=== PATIENT | female | born 1995 | race African-American/Black ===

== ENCOUNTER 2025-04-13 15:24 | Outpatient (AMB) | payer OTHER, SELFPAY ==
--- NOTE | 2025-04-13 13:51 | A.OFFPC_ITS ---
Vital Signs 04/13/25 15:30 Height 5 ft 4 in Weight 205 lb BMI 35.2 BP 100/74 Blood Pressure Location Lt brachial Position Sitting Respiration 16 Pulse 68 Pulse Source Pulse Oximeter Temp 98.3 F Temp Source Oral Pulse Oximetry (%) 96 Oxygen Delivery Method Room Air Intake Visit Reasons: ED follow up migraines Senior Sql Developer Required: No Accompanied by: Self / Same As Patient Allergies Penicillins Allergy (Intermediate, Verified 04/13/25 15:32) Hives Medication List - Last Reconciled 04/13/25 by Shantel Goodman MD acetaminophen (Tylenol Extra Strength) 500 mg PO Q6H PRN albuterol sulfate 90 mcg/actuation 2 puffs inhalation Q4H PRN cholecalciferol (vitamin D3) 50 mcg PO DAILY fluoride (sodium) 1.1% 1 appl dental BEDTIME fluticasone propionate 50 mcg/actuation 1 spray intranasal DAILY ibuprofen 800 mg PO Q8H PRN metformin 500 mg PO DAILY norethindrone (contraceptive) (Incassia) 0.35 mg PO DAILY Tobacco use date assessed: 04/13/25 Dental Screening Dental Screen Date: 04/13/25 Did you have a dental visit in the last 12 months?: Yes Did you have a dental problem in the last 6 months where you did not have access to dental care?: No Was dental information given to patient?: Patient has dentist HPI HPI Comments History of Present Illness Details The patient is a 29 year old female presenting with migraines and to [facility]. Recent ED visit at [facility] on 04/05, records pending. Migraine: Recent episodes with ocular aura and headache right-sided. Uses OTC medications. Stress-related triggers noted. Went to [facility] ER. Elevated blood pressure readings: Elevated readings during migraines noted. Obesity: Difficulty with weight loss despite good dietary habits. Past use of metformin for weight management. Anxiety: Increased due to a new teaching role. Open to psychotherapeutic support. Possible Sleep Disorder: Unresolved numbness and fatigue post-migraines. 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 Card: normal s1, s2 Abd: SNTND, +BS Extremities: no edema Neuro: AOX3 Assessment and Plan 1. Migraine - Amitriptyline 25 mg at bedtime. - Monitor blood pressure, neurologist co nsult due to episodes of numbness with migraine that have recurred - on OCPS so prescribed amitriptyline in stead of topamax . 2. Elevated blood pressure - Blood pressure monitoring advised. 3. Obesity - Referral to weight management program. 4. Anxiety - Suggest psychotherapy. 5. Possible Sleep Disorder - Sleep study referral issued - could be triggering more episodes of m igraine Follow up in 4 months as scheduled for physical Discussion Notes During the office visit we discussed the management of her recurrent migraines, noting the occurrence of ocular aura and associated symptoms. I recommended initiating amitriptyline, highlighting its benefits for long-term migraine prevention. We talked about potential side effects, such as dry mouth and cognitive changes, and the need to contact me for any concerns. Regarding her blood pressure, she has been advised on regular monitoring, especially when experiencing headaches. We addressed her desire for weight management support, acknowledging her challenges despite dietary improvements and agreed on a weight management program referral. For anxiety influenced by occupational changes, we discussed the potential benefits of psychotherapy, which she was open to considering. Lastly, given her history of numbness and fatigue, a sleep study was recommended to further evaluate possible sleep disturbances that might contribute to her symptoms. Patient Instructions - Take amitriptyline 25 mg at bedtime as prescribed. - Monitor and log blood pressure regular ly. - Follow up with the weight management lynn amezquita when contacted. - Drink adequate water and maintain a ba lanced diet. - Schedule and attend a sleep study for further evaluation of symptoms. - Consider speaking with a therapist to help manage anxiety. - Report any new symptoms or concerns to the office [facility] Medical History (Updated 04/13/25 @ 17:49 by Shantel Goodman MD) Elevated blood pressure reading Sleepiness Routine adult health maintenance Migraines Obesity Family History (Updated 04/13/25 @ 17:47 by Shantel Goodman MD) Mother Hypertension Sleep apnea Chronic kidney disease Other Borderline diabetes Social History Housing: House Patient Tobacco Use Status: Never used Tobacco e-Cigarette/Vaping Use: Never Used service: No Current occupational status: employed Current occupation: [employer]ip [employer] Questionnaire AUDIT C Alcohol Use Questionnaire (AUDIT-C) 1. How often do you have a drink containing alcohol?: Monthly or less 2. How many drinks containing alcohol do you have on a typical day when you are drinking?: 1 or 2 3. How often do you have six or more drinks on one occasion?: Never Total Score: 1 Physical exam (Primary Care) Vital Signs: Last Vital Signs Temp 98.3 F 04/13/25 15:30 Pulse 68 04/13/25 15:30 Resp 16 04/13/25 15:30 BP 100/74 04/13/25 15:30 Pulse Ox 96 04/13/25 15:30 Oxygen Delivery Method Room Air 04/13/25 15:30 BMI result Body Mass Index 35.2 Tobacco/Smoking Status: Tobacco use Status Tobacco use date assessed 04/13/25 04/13/25 13:52 Patient Tobacco Use Status Never used Tobacco 04/13/25 15:38 e-Cigarette/Vaping Use Never Used 04/13/25 15:38 Coding Level of Care Code Est Pt Level 4 (23963) Complex EM visit Add On G2211 Diagnoses Migraine with aura and without status migrainosus, not intractable G43.109 Intractability: not intractable Migraine type: with aura Status migrainosus presence: without status migrainosus Class 2 obesity with body mass index (BMI) of 35.0 to 35.9 in adult, unspecified obesity type, unspecified whether serious comorbidity present E66.9; Z68.35 Body mass index: BMI 35.0-35.9 Obesity classification: adult class 2 (BMI 35 - 39.9) Obesity type: unspecified obesity type Serious obesity comorbidity presence: unspecified whether serious comorbidity present Elevated blood pressure reading R03.0 Assessment & Plan Assessment & Plan (1) Migraines: Code(s): G43.909 - Migraine, unspecified, not intractable, without status migrainosus Category: Medical Qualifiers: Intractability: not intractable Migraine type: with aura Status migrainosus presence: without status migrainosus Qualified Code(s): G43.109 - Migraine with aura, not intractable, without status migrainosus (2) Obesity: Code(s): E66.9 - Obesity, unspecified Category: Medical Qualifiers: Body mass index: BMI 35.0-35.9 Obesity classification: adult class 2 (BMI 35 - 39.9) Obesity type: unspecified obesity type Serious obesity comorb idity presence: unspecified whether serious comorbidity present Qualified Code(s): E66.9 - Obesity, unspecified; Z68.35 - Body mass index [BMI] 35.0-35.9, adult (3) Elevated blood pressure reading: Code(s): R03.0 - Elevated blood-pressure reading, without diagnosis of hypertension Category: Medical Plan - Prescribe amitriptyline 25 mg for migraine. - Neurology consult for complex migraine symptoms. - Encourage blood pressure monitoring. - Medical weight management referral. - Suggest psychotherapy for anxiety. - Sleep study referral recommended. Orders: Orders Lipid Panel Today E66.9 - Obesity, unspecified, G43.909 - Migraine, unspecified, not intractable, without status migrainosus, Z00.00 - Encounter for general adult medical examination without abnormal findings Complete Blood Count Auto Diff Today E66.9 - Obesity, unspecified, G43.909 - Migraine, unspecified, not intractable, without status migrainosus, Z00.00 - Encounter for general adult medical examination without abnormal findings Comprehensive Met. Panel Today E66.9 - Obesity, unspecified, G43.909 - M igraine, unspecified, not intractable, without status migrainosus, Z00.00 - Encounter for general adult medical examination without abnormal findings ABO RH Type Today G43.109 - Migraine with aura, not intractable, without status migrainosus Referrals Medical Weight Management Referral E66.9 - Obesity, unspecified Neurology Referral G43.109 - Migraine with aura, not intractable, without status migrainosus Sleep Medicine Referral G43.109 - Migraine with aura, not intractable, without status migrainosus, R40.0 - Somnolence Medications: New amitriptyline 25 mg PO BEDTIME 90 tabs 1RF Patient Instructions: TAKE AMITRIPTYLINE 25MG AT NIGHT FOR MIGRAINES REFERRAL FOR MEDICAL WEIGHT MANAGEMENT GET [facility] REFERRAL PLACED FOR NEUROLOGY REFERRAL FOR PLACED FOR SLEEP APNEA REFERRAL FOR THERAPIST
[2025-04-13 15:30] VITALS: BP 100/74; PULSE 68; RESP 16; TEMP 36.8; O2SAT 96; BMI 35.2
--- OUTSIDE RECORDS SUMMARY | 2025-04-13 19:45 | XMS_ITS ---
Author Name [facility] Organization Unknown History of Medication Use Medication Directions Dispensed Refills Start Date End Date Stat metronidazole 500 mg tablet Take 1 tablet twice a day by oral route as directed for 7 days. 06/22/2024 4 active fluconazole 150 mg tablet Take 1 tablet twice a week by oral route for 14 days. 01/07/2024 4 active Macrobid 100 mg capsule Take 1 capsule every 12 hours by oral route for 5 days. 10/24/2023 active terconazole 0.4 % vaginal cream Insert 1 applicatorful every day by vaginal route for 7 days. 10/14/2023 4 active nystatin-triamcinolo ne 100,000 unit/gram-0.1 % topical ointment APPLY TO THE AFFECTED AREA BY TOPICAL ROUTE 2 TIMES PER DAY FOR 2 WEEKS 10/08/2023 4 active cholecalciferol (vitamin D3) 50 mcg (2,000 unit) capsule TAKE 1 CAPSULE BY MOUTH EVERY DAY 5 completed metronidazole 0.75 % (37.5 mg/5 gram) vaginal gel 5 completed topiramate 25 mg tablet TAKE 1-2 TABLET BY MOUTH DAILY AT NIGHT FOR MIGRAINES AND APPETITE SUPPRESSION 5 completed doxycycline monohydrate 100 mg capsule 4 completed nitrofurantoin monohydrate/macrocry stals 100 mg capsule 02 4 completed Wegovy 1.7 mg/0.75 mL subcutaneous pen injector 4 active azithromycin 250 mg tablet 4 completed clotrimazole-betamet hasone 1 %-0.05 % topical cream 4 completed Lisandra 30 mg tablet 4 completed Wegovy 0.25 mg/0.5 mL subcutaneous pen injector 4 completed Wegovy 0.5 mg/0.5 mL subcutaneous pen injector 4 completed Wegovy 1 mg/0.5 mL subcutaneous pen injector 4 completed nystatin-triamcino lone 100,000 unit/gram-0.1 % topical ointment active metronidazole 500 mg tablet active fluconazole 150 mg tablet active terconazole 0.4 % vaginal cream active albuterol sulfate HFA 90 mcg/actuation aerosol inhaler active Incassia 0.35 mg tablet Take 1 tablet every day by oral route. active metformin 500 mg tablet TAKE 1 TABLET ORALLY DAILY TAKE AT NIGHT active ondansetron [address] 1 TABLET BY MOUTH TWICE A DAY NEEDED active sodium fluoride 1.1 % dental paste BRUSH FOR 1 MINUTE ONCE DAILY AT BEDTIME, NO EAT, DRINK, OR RINSE FOR 30 MINUTES AFTER active Allergies Allergen Reaction Severity Comment Documented Date Source Statu s MEDICINAL PRODUCT CONTAINING PENICILLIN AND ACTING ANTIBACTERIAL AGENT (PRODUCT) HIVES [facility] active Problems Problem Status Onset Date Problem Type Date of Resoluti on Source Migraine active 2024-01-07 ProblemAct [facility] Body mass index 30+ - obesity active 2024-01-07 ProblemAct [facility] Uses oral contraception active 2024-01-07 ProblemAct [facility] Immunizations Vaccine Date Source Lot Number Status Tdap 07/07/2023 [facility] [id number] completed COVID-19, mRNA, LNP-S, PF, 1 00 mcg/0.5mL dose or 50 mcg/0.25mL dose 06/21/2021 [facility] [id number] completed Influenza, split virus, triv alent, preservative 06/01/2021 [facility] [id number] completed COVID-19, mRNA, LNP-S, PF, 1 00 mcg/0.5mL dose or 50 mcg/0.25mL dose 07/28/2020 [facility] [id number] completed COVID-19, mRNA, LNP-S, PF, 1 00 mcg/0.5mL dose or 50 mcg/0.25mL dose 06/30/2020 [facility] [id number] completed Encounters Encounter Type Encounter Reason Primary Diagnosis Location Date Ambulatory Acute vaginitis Acute vaginitis [facility] 09/13/2024 Ambulatory Acute vaginitis Acute vaginitis [facility] 06/22/2024 Ambulatory Acute vaginitis Acute vaginitis [facility], [facility] 03/11/2024 Ambulatory Dysuria Dysuria [facility], [facility] 01/07/2024 Ambulatory Endometriosis, unspecified Endometriosis, unspecified [facility], [facility] 12/10/2023 Ambulatory Acute vaginitis Acute vaginitis [facility] 10/23/2023 Ambulatory Acute vaginitis Acute vaginitis [facility] 10/23/2023 Ambulatory Abnormal microbiolog findings in specimens from oth org/tiss Abnormal microbiolog findings in specimens from oth org/tiss [facility], [facility] 10/20/2023 Ambulatory Acute vaginitis Acute vaginitis [facility], [facility] 10/14/2023 Ambulatory Right lower quadrant pain Right lower quadrant pain [facility], [facility] 10/08/2023 Ambulatory Acute vaginitis Acute vaginitis [facility], [facility] 09/18/2023 Ambulatory no current diagnosis no current diagnosis [facility], [facility] 08/14/2023 Care Team Organization Name Specialty Phone Email Start Date End Da te [facility], [facility] 08/14/2023 [facility], [facility] 08/14/2023
--- OUTSIDE RECORDS SUMMARY | 2025-04-13 19:45 | XMS_ITS | Encounter Summary ---
Author Organization [facility] Address [address] [place] [address] [place] [id number] Phone Care Team Providers Care Kiln Loader Name Role Phone Shantel Goodman MD Primary Care Provider + Encounter Details Date Type Department Care Team (Late st Contact Info) Description 08/13/2022 Telephone [facility] - [address] [address] Michelle Soriano, [facility] [address] [place] [address] [email or web address] Social History Tobacco Use Types Packs/Day Years Used Date Smoking Tobacco: Never Smokeless Tobacco: Never Alcohol Use Standard Drinks/Week Comments Yes 0 (1 standard drink = 0.6 oz pur e alcohol) socially Comments No Sex and Gender Information Value Date Recorded Sex Assigned at Female 08/23/2019 2:22 PM EDT Legal Sex Female 2:13 PM EDT Gender Identity Female 08/23/2019 2:22 PM EDT Sexual Orientation Straight 08/23/2019 2: 22 PM EDT documented as of this encounter Plan of Treatment Not on file documented as of this encounter Visit Diagnoses Not on filedocumented in this encounter Additional Health Concerns Infection Onset Date Last Indicated Resolved Time CoV-Risk 06/19/2023 06/19/2023 06/30/2023 1:22 AM EST CoV-Risk 07/11/2023 07/11/202307/1107/11/2023 9:37 AM EST COVID-19 07/11/2023 07/11/2023 08/01/2023 1:21 AM EST CoV-Risk 04/05/2025 04/05/2025 documented as of this encounter Care Teams Kiln Loader Relationship Specialty [place] [address] [place] [address] PCP - General Internal Medicine 08/23/19 documented as of this encounter Additional Source Comments The information contained in this document represents components of the legal health record. It is not the complete legal health record.[facility]
--- OUTSIDE RECORDS SUMMARY | 2025-04-13 19:45 | XMS_ITS | Encounter Summary ---
Author Organization [facility] Address [address] [place] [address] [place] [address] Phone Care Team Providers Care Lang Path Therapist Name Role Phone Shantel Goodman MD Primary Care Provider + Encounter Details Date Type Department Care Team ([facility] st Contact Info) Description 04/05/[address] [facility] Ur[facility] Care [address] [address] Jessenia Underwood MD [address] [place] [address] [place] [address] [email or web address] Social History Tobacco Use Types Packs/Day Years Used Date Smoking Tobacco: Never Smokeless Tobacco: Never Comments No Sex and Gender Information Value [...] Onset Date Last Indicated Resolved Time CoV-Risk 07/08/2022 07/08/2022 07/19/2022 1:22 AM EST CoV-Risk 06/19/2023 06/19/2023 06/30/2023 1:22 AM EST CoV-Risk 07/11/2023 07/11/2023 07/11/2023 9:37 AM EST COVID-19 07/11/2023 07/11/2023 08/01/2023 1:21 AM EST CoV-Risk 04/05/2025 04/05/2025 documented as of this encounter Care Teams Lang Path Therapist Relationship Specialty Start Date End Date Shantel Goodman MD [address] [place] [address] PCP - General Internal Medicine 08/23/19 documented as of this encounter Additional Source Comments The information contained in this document represents components of the legal health record. It is not the complete legal health record.[facility]
--- OUTSIDE RECORDS SUMMARY | 2025-04-13 19:45 | XMS_ITS | Encounter Summary ---
Author Organization [facility] Address [address] [place] [address] Phone Care Team Providers Care Benefits Specialist Recruiter Name Role Phone Shantel Goodman MD Primary Care Provider + Encounter Details Date Type Department Care Team (Late st Contact Info) Description 04/05/2025 Procedure [facility], Ct Scan - [facility] [address] [place] [address] Social History Tobacco Use Types Packs/Day Years Used Date Smoking Tobacco: Never Smokeless Tobacco: Never Alcohol Use Standard Drinks/Week Comments Yes 0 (1 standard drink = 0.6 oz pur e alcohol) socially Education Answer Date Recorded Are you interested in more education? Not on maddison e 10/11/2022 Are you concerned about learning? Not on file 10/11/2022 No 10/11/2022 No 10/11/2022 Food Answer Date Recorded Within the past 6 months we worried whether our food would run out before we got money to buy more. Never True 04/05/2025 Within the past 6 months the food we bought just didn't last and we didn't have enough money to get more. Never True Residential Stability Answer Date Recor ded What is your housing situation today? I have yesika sing 04/05/2025 How many times have you move d in the past 12 months? Zero (I did not move) 04/05/2025 Paying for Meds Answer Date Recorded Do you have trouble paying for medicines? No 04/05/2025 Paying Utility Bills Answer Date Record ed Do you have trouble paying your heating or elect ricity bill? No 04/05/2025 Transportation Answer Date Recorded Has the lack of transportati on kept you from medical appointments or from getting medications? No 04/05/2025 Digital Access Answer Date Recorded No 04/05/2025 Yes 04/05/2025 Do you have reliable internet access at home? Ye s 04/05/2025 Do you have a device (e.g., phone, tablet, computer) with a working camera? Yes 04/05/2025 Intimate Partner Violence Answer Date R ecorded Are you denied basic needs s uch as food, clothing, or medical care? No 04/05/2025 In the past 12 months have y ou been in a relationship with a person who hurts, threatens, or tries to control you? No 04/05/2025 Are you denied basic needs s uch as food, clothing, or medical care? No 04/05/2025 In the past 12 months have y ou been in a relationship with a person who hurts, threatens, or tries to control you? No 04/05/2025 Comments No Sex and Gender Information Value Date Recorded Sex Assigned at Female 08/23/2019 2:22 PM EDT Legal Sex Female 2:13 PM EDT Gender Identity Female 08/23/2019 2:22 PM EDT Sexual Orientation Straight 08/23/2019 2: 22 PM EDT documented as of this encounter Functional Status * Calculated C-SSRS Risk Score (Lifetime/Recent) Answer Date of Assessment Author No Risk Indicated 04/05/2025 4:41 PM EDT Kaylee Saxena RN * [place] Suicide Severity Rating Scale (Screener/Recent Self-Report) Question Answer Date of Assessment Author 1. Wish to be (Past 1 Month) No 025 4:41 PM EDT Kaylee Saxena, OTONIEL 2. Non-Specific Active Suici richard Thoughts (Past 1 Month) No 04/05/2025 4:41 PM EDT Kaylee Saxena, RN 6. Suicidal Behavior (Lifetime) No 4:41 PM EDT Kaylee Saxena, RN documented as of this encounter Plan of Treatment Not on file documented as of this encounter Visit Diagnoses Not on filedocumented in this encounter Additional Health Concerns Infection Onset Date Last Indicated Resolved Time CoV-Risk 04/05/2025 04/05/2025 documented as of this encounter Care Teams Benefits Specialist Recruiter Relationship Specialty Start Date End Date Shantel Goodman MD [address] [place] [address] PCP - General Internal Medicine 08/23/19 documented as of this encounter Additional Source Comments The information contained in this document represents components of the legal health record. It is not the complete legal health record.[facility]
--- OUTSIDE RECORDS SUMMARY | 2025-04-13 19:45 | XMS_ITS | Clinical Summary ---
Author Organization [facility] Address [address] [facility] [address] [place] [address] Phone Care Team Providers Care Event Manager Name Role Phone Shantel Goodman MD Primary Care Provider + Allergies Active Allergy Reactions Criticality Noted Date Comments Penicillins 02/21/2020 Medications fluticasone propionate (FLONASE) 50 mcg/actuation nasal spray Active norethindrone (MICRONOR) 0.35 mg tablet Take 1 tablet (0.35 mg total) by mouth daily. 90 tablet 4 3 Active WEGOVY 0.25 mg/0.5 mL subcutaneous pen injection 3 Active pseudoephedrine (SUDAFED) 60 MG tabletIndication s:Acute cough Take 1 tablet (60 mg total) by mouth every 6 (six) hours as needed for congestion. 30 tablet 4 Active Additional Information Patient not taking.Reported on 10/03/2023 albuterol (PROAIR HFA) 90 mcg/actuation inhalerIndicatio ns:Acute cough Inhale 1 puff into the lungs every 4 (four) hours as needed for wheezing or shortness of breath/dyspnea (cough). 8 g 4 Active medroxyPROGESTER one (DEPO-PROVERA) 150 mg/mL injection 3 Active Active Problems Problem Noted Date Diagnosed Date Amenorrhea 10/25/2022 10/25/2022 Back pain 10/25/2022 10/25/2022 Hyperprolactinemia 10/25/2022 10/25/2022 Cough 10/25/2022 10/25/2022 Shortness of breath 10/25/2022 10/25/2022 Chronic headaches 09/26/2022 Migraines 09/26/2022 Class 1 obesity 06/21/2022 Encounters Date Type Department Care Team Description 04/05/2025 6:15 PM EDT - 04/05/2025 10:58 PM EDT Emergency [facility] [address] [place] [address] Talita Tristan MD Discharge Disposition: Home or Self Care 04/05/2025 Procedure Pass [facility], Ct Scan - [facility] [address] [place] [address] from Last 3 Months Immunizations Immunization Administration Dates Next Due COVID-19 (Pre-04/07) Moderna Vaccine, mRNA, PF 07/28/2020,06/30/2020 INFLUENZA, SPLIT VIRUS, TRIV ALENT W/ PRESERVATIVE IM 06/01/2021,05/25/2020,05/26/2019 Social History Tobacco Use Types Packs/Day Years [...] Orientation Straight 08/23/2019 2: 22 PM EDT Last Filed Vital Signs Vital Sign Reading Time Taken Comments Blood Pressure 112/72 04/05/2025 9:51 PM EDT Pulse 71 04/05/2025 9:51 PM EDT Temperature 36.2 C (97.2 F) 04/05/2025 9:51 PM EDT Respiratory Rate 18 04/05/2025 9:51 PM EDT Oxygen Saturation 98% 04/05/2025 9:51 PM EDT Inhaled Oxygen Concentration - - Weight 88.9 kg (196 lb) 04/05/2025 4:41 PM EDT Height 160 cm (5' 3 ) 04/05/2025 4:41 PM EDT Body Mass Index 34.72 04/05/2025 4:41 PM EDT Plan of Treatment Health Maintenance Due Date Last Done Comments HEPATITIS C SCREENING 11/08/2011 HIV ONE-TIME SCREENING (18-6 5 YEARS) 11/08/2011 PAP SMEAR 2014 DEPRESSION SCREENING 12/10/2023 12/09/2022 INFLUENZA VACCINE (#1) 2025 , 05/25/2020, 05/26/2019 COVID-19 VACCINE ( - 2024-2 6 season) 2025 06/21/2021, 07/28/2020, 06/30/2020 Adult Td,Tdap Booster 07/07/2033 07/07/2023 SMOKING STATUS SCREENING (On ce After 26 Yrs) Completed 10/03/2023 HEPATITIS A VACCINES Aged Out No long er eligible based on patient's age to complete this topic HIB VACCINES Aged Out No longer eligi ble based on patient's age to complete this topic MENINGOCOCCAL VACCINES (ACWY) Aged Out No longer eligible based on patient's age to complete this topic MENINGOCOCCAL VACCINES (B) Aged Out N o longer eligible based on patient's age to complete this topic PNEUMOCOCCAL VACCINES (0-49 years) Aged Out No longer eligible b ased on patient's age to complete this topic Medical Devices Not on file Procedures Procedure Name Priority Date/Time Associated Diagnosis Comments CT HEAD WITHOUT CONTRAST Routine 04/05/2025 8:17 PM EDT COVID PANDEMIC RESPIRATORY VIRAL ORDER (PRO) STAT 04/05/2025 4:42 PM EDT from Last 3 Months Results * CT HEAD WITHOUT CONTRAST (04/05/2025 8:17 PM EDT) Anatomical Region Laterality Modality Head Computed Tomogra phy 04/05/2025 10:2 4 PM EDT Impressions 04/05/2025 10:30 PM EDT No acute intracranial hemorrhage, midline shift, or mass effect. Narrative 04/05/2025 10:[address] HEAD WITHOUT CONTRAST Referring clinician's provided indication for this examination in Epic: * Headache, chronic, new features or increased frequency TECHNIQUE: Multidetector-row CT of the head was performed without intravenous contrast using tailored dose modulation techniques. Images were reconstructed in the axial, coronal, and sagittal planes. Comparison: None FINDINGS: Brain Parenchyma: No acute intraparenchymal hemorrhage, midline shift, or mass effect. Ventricular System and Extra-Axial Spaces: No extra-axial fluid collections. Basal cisterns are patent. No hydrocephalus. Calcified intracranial vascular disease. Osseous and Extracranial Structures: No acute calvarial fracture. The mastoid air cells are well-aerated. Minimal to mild scattered paranasal sinus mucosal thickening. The bilateral globes are intact. The soft tissues are unremarkable. Procedure Note Tahir Freedman MD - 04/05/2025 CT HEAD WITHOUT CONTRAST Referring clinician's provided indication for this examination in Epic: *Headache, chronic, new features or increased frequency TECHNIQUE: Multidetector-row CT of the head was performed withoutintravenous contrast using tailored dose modulation techniques. Imageswere reconstructed in the axial, coronal, and sagittal planes. Comparison: None FINDINGS: Brain Parenchyma: No acute intraparenchymal hemorrhage, midline shift, ormass effect. Ventricular System and Extra-Axial Spaces: No extra-axial fluidcollections. Basal cisterns are patent. No hydrocephalus. Calcifiedintracranial vascular disease. Osseous and Extracranial Structures: No acute calvarial fracture. Themastoid air cells are well-aerated. Minimal to mild scattered paranasalsinus mucosal thickening. The bilateral globes are intact. The softtissues are unremarkable. IMPRESSION: No acute intracranial hemorrhage, midline shift, or mass effect. Talita Tristan MD IM CT HEAD/NECK Final Resul t * COVID Pandemic Respiratory Viral Order (PRO) (04/05/2025 4:42 PM EDT) Test Ordered COVID, Flu has been ordered [facility] Specimen Source/Descriptio n NASOPHARYNGEAL SWAB [facility] Influenza A PCR Not Detected Not Detected [facility] Influenza B PCR Not Detected Not Detected [facility] SARS-CoV 2 (COVID-19) PCR Not Detected Not Detected [facility] Comment: SARS-CoV-2 not detected Negative results do not preclude SARS-CoV-2 infection and should not be used as the sole basis for patient management decisions. Negative results must be combined with clinical observations, patient history, and epidemiological information. Other (Nasopharyngeal swab) 04/05/2025 4:42 PM EDT 04/05/2025 4:46 PM EDT us George Gonzalez MD BODY FLUIDS AND STOOLS ORDERABL ES Final Result [address] [address] from Last 3 Months Additional Health Concerns Infection Onset Date Last Indicated CoV-Risk 04/05/2025 04/05/2025 [place] [facility] [place] [facility] [place] [facility] [place] [phone] [facility] [place] [facility] Care Teams Event Manager Relationship Specialty Start Date End Date Shantel Goodman MD [facility] [place] [address] PCP - General Internal Medicine 08/23/19 Additional Source Comments The information contained in this document represents components of the legal health record. It is not the complete legal health record.[facility]
== END 2025-04-13 16:19 | disposition home or self-care (01) ==
LOC: HO.HMCHD 15:25
PROVIDERS: PCP Internal Medicine; Visit Provider Internal Medicine
DX: G43.109 Migraine with aura, not intractable, without status migrainosus (principal); E66.9 Obesity, unspecified; Z68.35 Body mass index [BMI] 35.0-35.9, adult; R03.0 Elevated blood-pressure reading, without diagnosis of hypertension

== ENCOUNTER → 2025-04-13 15:24 | Outpatient (BNVA) | payer OTHER, SELFPAY | PROVIDERS: PCP Internal Medicine; Visit Provider Internal Medicine | DX: G43.109 Migraine with aura, not intractable, without status migrainosus (principal); R03.0 Elevated blood-pressure reading, without diagnosis of hypertension; E66.812 Obesity, class 2; Z68.35 Body mass index [BMI] 35.0-35.9, adult; F41.9 Anxiety disorder, unspecified; R40.0 Somnolence | CPT/HCPCS: 99212 ==

== ENCOUNTER 2025-04-14 07:28 | Outpatient (REF) | payer OTHER, SELFPAY ==
--- OUTSIDE RECORDS SUMMARY | 2025-04-14 07:34 | XMS_ITS | Encounter Summary ---
Author Organization [facility] Address [address] [facility] [address] [place] [address] Phone Care Team Providers Care Hourly Manager Name Role Phone Shantel Goodman MD Primary Care Provider + Encounter Details Date Type Department Care Team (Late st Contact Info) Description 04/05/2025 Procedure Pass [facility], Ct Scan - [facility] [address] [place] [address] Social History Tobacco Use Types Packs/Day Years [...] 4:41 PM EDT Kaylee Saxena RN * [place] Suicide Severity Rating Scale (Screener/Recent Self-Report) Question [...] documented as of this encounter Care Teams Hourly Manager Relationship Specialty Start Date End Date Shantel Goodman MD [address] [place] [address] PCP - General Internal Medicine 08/23/19 documented as of this encounter Additional Source Comments The information contained in this document represents components of the legal health record. It is not the complete legal health record.[facility]
--- OUTSIDE RECORDS SUMMARY | 2025-04-14 07:34 | XMS_ITS | Encounter Summary ---
Author Organization [facility] Address [address] [place] [address] [place] [phone] Phone Care Team Providers Care Air Brake Adjuster Name Role Phone Shantel Goodman MD Primary Care Provider + Encounter Details Date Type Department Care Team ([facility] st Contact Info) Description 04/05/2021 Telephone [facility] Urgent Care [address] [address] Jessenia Underwood MD [address] [place] [address] [place] [address] [email or web address] Social History Tobacco Use Types Packs/Day Years [...] documented as of this encounter Care Teams Air Brake Adjuster Relationship Specialty Start Date End Date Shantel Goodman MD [address] [place] [address] PCP - General Internal Medicine 08/23/19 documented as of this encounter Additional Source Comments The information contained in this document represents components of the legal health record. It is not the complete legal health record.[facility]
--- OUTSIDE RECORDS SUMMARY | 2025-04-14 07:34 | XMS_ITS | Clinical Summary ---
Author Organization [facility] Address [address] [facility] [address] [place] [address] Phone Care Team Providers Care Manager Council Name Role Phone Shantel Goodman MD Primary [...] 10:58 PM EDT Emergency [facility] [address] [place] [address] Talita Tristan MD Discharge Disposition: Home or Self Care 04/05/2025 Procedure Pass [facility], Ct Scan - [facility] [address] [place] [address] from Last 3 Months Immunizations Immunization Administration [...] Test Ordered COVID, Flu has been ordered [facility] Specimen Source/Descriptio n NASOPHARYNGEAL SWAB [facility] Influenza A PCR Not Detected Not Detected [facility] Influenza B PCR Not Detected Not Detected [facility] SARS-CoV 2 (COVID-19) PCR Not Detected Not Detected [facility] Comment: SARS-CoV-2 not detected Negative results do not preclude SARS-CoV-2 infection and should not be used as the sole basis for patient management decisions. Negative results must be combined with clinical observations, patient history, and epidemiological information. Other (Nasopharyngeal swab) 04/05/2025 4:42 PM EDT 04/05/2025 4:46 PM EDT us George Gonzalez MD BODY FLUIDS AND STOOLS ORDERABL ES Final Result [address] [address] from Last 3 Months Additional Health Concerns Infection Onset Date Last Indicated CoV-Risk 04/05/2025 04/05/2025 Insurance [place] [facility] [place] [facility] [place] [facility] [place] [phone] [facility] [place] [facility] Care Teams Manager Council Relationship Specialty Start Date End Date Shantel Goodman MD [facility] [place] [address] PCP - General Internal Medicine 08/23/19 Additional Source Comments The information contained in this document represents components of the legal health record. It is not the complete legal health record.[facility]
--- OUTSIDE RECORDS SUMMARY | 2025-04-14 07:34 | XMS_ITS | Encounter Summary ---
Author Organization [facility] Address [address] [place] [address] [place] [address] Phone Care Team Providers Care Pharmacy Services Representative Name Role Phone Shantel Goodman MD Primary Care Provider + Encounter Details Date Type Department Care Team (Late st Contact Info) Description 08/13/2022 Telephone [facility] Urgent Care - [address] [address] Michelle Soriano, [facility] [address] [place] [address] [email or web address] Social History Tobacco Use Types Packs/Day Years [...] documented as of this encounter Care Teams Pharmacy Services Representative Relationship Specialty [place] [address] [place] [address] PCP - General Internal Medicine 08/23/19 documented as of this encounter Additional Source Comments The information contained in this document represents components of the legal health record. It is not the complete legal health record.[facility]
[2025-04-14 10:15] LABS: MANUAL DIFF FLAG NO
[2025-04-14 10:25] LABS: Hematocrit 37.7 % (37.0-47.0); Hemoglobin 12.2 g/dl (12.0-16.0); Imm Gran Abs Auto 0.02 X10*3/uL (0.00-0.03); Imm Gran Pct Auto 0.3 % (0.0-0.4); Lymphocytes Absolute Auto 2.1 X10*3/uL (1.2-4.9); Mean Corpuscular HGB Conc 32.4 g/dl (31.0-35.0); Mean Corpuscular Hemoglobin 30.2 pg (27.0-33.0); Mean Corpuscular Volume 93.3 fL (80.0-98.0); NRBC Abs Auto 0.000 X10*3/uL (0.0-0.012); NRBC Pct Auto 0.0 /100WBC (0.0-0.2); Platelet Count 303 X10*3/uL (160-400); Red Blood Count 4.04 X10*6/uL (4.20-5.50); White Blood Count 6.4 X10*3/uL (4.8-10.8)
[2025-04-14 11:03] LABS: Alanine Aminotransferase 11 U/L (0-31); Albumin Level 4.1 g/dL (3.5-5.0); Alkaline Phosphatase 60 U/L (39-117); Anion Gap 10 (12-20); Aspartate Amino Transferase 22 U/L (5-31); Blood Urea Nitrogen 6 mg/dL (9-16); Calcium 9.2 mg/dL (8.4-10.2); Carbon Dioxide 25 mmol/L (22-29); Chloride 107 mmol/L (96-108); Cholesterol 118 mg/dL (<200); Estimated Glomerular Filt Rate > 60; HDL Cholesterol 53 mg/dL (>40); Potassium 4.2 mmol/L (3.3-5.1); Sodium 138 mmol/L (135-145); Total Protein 6.9 g/dL (6.5-8.0); Triglycerides 70 mg/dL (<150)
== END 2025-04-14 07:29 | disposition home or self-care (01) ==
LOC: HO.HMGCLDS 07:28
PROVIDERS: PCP Internal Medicine; Visit Provider Internal Medicine
DX: Z00.00 Encounter for general adult medical examination without abnormal findings (principal); G43.109 Migraine with aura, not intractable, without status migrainosus; E66.9 Obesity, unspecified
CPT/HCPCS: 36415; 80053; 80061; 85025; 86900; 86901